=== PATIENT | male | born 1965 | race Caucasian/White ===

== ENCOUNTER → 2021-10-30 | Outpatient (CLI) | payer OTHER | LOC: KOH-I 11:12 | DX: M47.12 Other spondylosis with myelopathy, cervical region (principal); M47.22 Other spondylosis with radiculopathy, cervical region | CPT/HCPCS: 72141 ==

== ENCOUNTER → 2022-01-03 | Outpatient (CLI) | payer OTHER | LOC: KOH-I 11:19 | DX: R07.9 Chest pain, unspecified (principal) | CPT/HCPCS: 71046 ==